=== PATIENT | female | born 1985 | race American Indian/Alaskan Native ===

== ENCOUNTER 2020-08-10 13:29 | Emergency (ER) | payer MEDICAID ==
[2020-08-10 15:31] LABS: Basophils % (Auto) 0.5 % (0.0-1.8); Eosinophils # (Auto) 0.1 K/mm3 (0.0-0.4); Eosinophils % (Auto) 1.3 % (0.0-4.3); Hematocrit 41.5 % (30.3-42.9); Hemoglobin 13.8 gm/dl (10.1-14.3); Lymphocytes # (Auto) 1.4 K/mm3 (1.2-5.4); Lymphocytes % (Auto) 25.2 % (13.4-35.0); Mean Corpuscular HGB Conc 33 % (30-34); Mean Corpuscular Volume 89 fl (79-97); Monocytes # (Auto) 0.6 K/mm3 (0.0-0.8); Monocytes % (Auto) 11.1 % (0.0-7.3); Platelet Count 301 K/mm3 (140-440); Red Blood Count 4.65 M/mm3 (3.65-5.03)
[2020-08-10 16:29] LABS: Alanine Aminotransferase 9 units/L (7-56); Albumin 4.5 g/dL (3.9-5); Blood Urea Nitrogen 13 mg/dL (7-17); Calcium 9.2 mg/dL (8.4-10.2); Hemolysis Index 5
[2020-08-10 16:30] LABS: BUN/Creatinine Ratio 19
[2020-08-10 19:11] VITALS: BP 116/82
[2020-08-10] MEDS ORDERED: KETOROLAC 30 MG/1 ML INJ IV ONE (19:29)
[2020-08-10] MEDS ORDERED: dexAMETHasone 20 MG/5 ML VIAL IV ONE (19:29)
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
--- NOTE | 2020-08-10 20:14 | XRay Report ---
CHEST 2 VIEWS INDICATION / CLINICAL INFORMATION: chest wall pain. COMPARISON: None available. FINDINGS: SUPPORT DEVICES: None. HEART / MEDIASTINUM: No significant abnormality. LUNGS / PLEURA: No significant pulmonary or pleural abnormality. No pneumothorax. ADDITIONAL FINDINGS: No significant additional findings. IMPRESSION: 1. No acute findings. Signer Name: Bruce Velez MD Signed: 08/10/2020 8:10 PM Workstation Name: [id number]
--- NOTE | 2020-08-10 20:15 | XRay Report ---
XR spine cervical 2-3V INDICATION / CLINICAL INFORMATION: neck pain. COMPARISON: None available. FINDINGS: BONES/JOINT(S): No acute fracture or subluxation. No significant degenerative changes. SOFT TISSUES: No significant abnormality. ADDITIONAL FINDINGS: None. Signer Name: Bruce Velez MD Signed: 08/10/2020 8:10 PM Workstation Name: [id number]
== END 2020-08-10 21:15 | disposition home or self-care (01) ==
LOC: ED 13:29
DX: S16.1XXA Strain of muscle, fascia and tendon at neck level, initial encounter (principal); Z90.49 Acquired absence of other specified parts of digestive tract; Z98.890 Other specified postprocedural states; Z79.899 Other long term (current) drug therapy; Z88.2 Allergy status to sulfonamides; X58.XXXA Exposure to other specified factors, initial encounter; Y93.89 Activity, other specified; Y92.89 Other specified places as the place of occurrence of the external cause; Y99.8 Other external cause status
CPT/HCPCS: 36415; 71046; 72040; 80053; 85025; 96374; 96375; 99284; J1100; J1885

== ENCOUNTER 2021-03-19 23:27 | Emergency (ER) | payer MEDICAID ==
[2021-03-20] MEDS ORDERED: diazePAM 10 MG/2 ML SYRINGE IV ONE (02:22)
[2021-03-20] MEDS ORDERED: SODIUM CHLORIDE 0.9% 1000 ML 1,000 ML IV ONE (02:22)
[2021-03-20] MEDS ORDERED: KETOROLAC 30 MG/1 ML INJ IV ONE (02:22)
[2021-03-20] MEDS ORDERED: ONDANSETRON 4 MG/2 ML INJ IV ONE (02:22)
[2021-03-20 02:59] LABS: Basophils % (Auto) 0.9 % (0.0-1.8); Eosinophils % (Auto) 0.9 % (0.0-4.3); Hematocrit 40.6 % (30.3-42.9); Hemoglobin 12.8 gm/dl (10.1-14.3); Lymphocytes # (Auto) 1.4 K/mm3 (1.2-5.4); Lymphocytes % (Auto) 39.6 % (13.4-35.0); Mean Corpuscular HGB Conc 32 % (30-34); Mean Corpuscular Volume 88 fl (79-97); Monocytes # (Auto) 0.5 K/mm3 (0.0-0.8); Monocytes % (Auto) 13.3 % (0.0-7.3); Platelet Count 183 K/mm3 (140-440); Red Blood Count 4.59 M/mm3 (3.65-5.03)
[2021-03-20 03:23] LABS: Alanine Aminotransferase 10 units/L (7-56); Albumin 3.8 g/dL (3.9-5); Blood Urea Nitrogen 10 mg/dL (7-17); Calcium 8.9 mg/dL (8.4-10.2); Hemolysis Index 2
[2021-03-20 03:26] LABS: BUN/Creatinine Ratio 14
--- NOTE | 2021-03-20 03:54 | XRay Report ---
CHEST 1 VIEW 03/20/2021 3:35 AM INDICATION / CLINICAL INFORMATION: COUGH, BODY ACHES. COMPARISON: 08/10/2020 FINDINGS: SUPPORT DEVICES: None. HEART / MEDIASTINUM: No significant abnormality. LUNGS / PLEURA: No significant pulmonary or pleural abnormality. No pneumothorax. ADDITIONAL FINDINGS: No significant additional findings. IMPRESSION: 1. No acute findings. Signer Name: Drew Turner DO Signed: 03/20/2021 3:49 AM Workstation Name: [id number]
[2021-03-20 04:41] LABS: Bacteria,Urine 1+ /HPF (Negative); Bilirubin,Urine NEG (Negative); Blood,Urine NEG (Negative); Color,Urine Yellow (Yellow); Mucus,Urine FEW /HPF; Protein,Urine <15 mg/dL mg/dL (Negative); Urobilinogen,Urine < 2.0 mg/dL (<2.0)
--- NOTE | 2021-03-20 05:31 | Emergency Department Report ---
- General Chief Complaint: Sore Throat Stated Complaint: COLD SX Source: patient Mode of arrival: Ambulatory Limitations: No Limitations - History of Present Illness Initial Comments: Patient is a 35-year-old -Malagasy female with a history of sickle cell anemia who presented to the ED with complaint of acute onset persistent nasal and sinus congestion, persistent dry cough, generalized weakness and fatigue, severe diffuse body aches and pains, nausea, subjective fever for the last 4 days. Patient states that she has been taking her medications at home as well as [id number] medications with no relief. Patient states that no one else at home is had similar symptoms. Patient denies dysuria, urinary frequency and urgency, abdominal pain, vomiting, diarrhea, dizziness, syncope, chest pain, shortness of breath, change in vision, vaginal bleeding or palpitations. MD Complaint: fever, cough, sore throat, rhinorrhea, nasal congestion, sinus pain, other (Diffuse body aches and pains) -: Sudden, days(s) (5) Severity: severe Severity scale (0 -10): 10 Quality: sharp, aching Consistency: constant Improves With: nothing Associated Symptoms: fever, chills, myalgias, headache, rhinorrhea, nasal congestion, cough, nausea. denies: sore throat, stiff neck, chest pain, shortness of breath, abdominal pain, vomiting, diarrhea, dysuria, rash, right sweats, weight loss, hoarseness, ear pain Treatments Prior to Arrival: "cold medicine" - Related Data Previous Rx's Medication Instructions Recorded Last Taken Type Cyclobenzaprine [Flexeril] 10 mg PO BID PRN #12 tablet 08/10/20 Unknown Rx Menthol/Camphor [[place] 1 applicatio TP Q6H PRN #1 tube 08/10/20 Unknown Rx Ointment] Naproxen 500 mg PO BID PRN #30 tablet 08/10/20 Unknown Rx predniSONE [Deltasone] 40 mg PO QDAY #10 tab 08/10/20 Unknown Rx Azithromycin [Zithromax Z-DERIC] 250 mg PO DAILY #6 tablet 03/20/21 Unknown Rx Baclofen 20 mg PO Q12H PRN #30 tablet 03/20/21 Unknown Rx Benzonatate [Tessalon Perles] 100 mg PO Q8HR #30 capsule 03/20/21 Unknown Rx Cetirizine HCl [Zyrtec 10mg tab] 10 mg PO DAILY #30 tablet 03/20/21 Unknown Rx Ibuprofen [Motrin] 800 mg PO Q8HR PRN #30 tablet 03/20/21 Unknown Rx Ondansetron [Zofran Odt] 4 mg PO Q6HR PRN #15 tab.rapdis 03/20/21 Unknown Rx Allergies Allergy/AdvReac Type Severity Reaction Status Date / Time Sulfa (Sulfonamide Allergy Vomiting Verified 08/10/20 14:47 Antibiotics) ED Review of Systems ROS: Stated complaint: COLD SX Other details as noted in HPI Constitutional: chills, fever, malaise, weakness Eyes: denies: eye pain, eye discharge, vision change ENT: congestion. denies: ear pain, throat pain Respiratory: cough. denies: shortness of breath, wheezing Cardiovascular: denies: chest pain, palpitations Endocrine: no symptoms reported Gastrointestinal: nausea. denies: abdominal pain, diarrhea Genitourinary: denies: urgency, dysuria, discharge Musculoskeletal: back pain, arthralgia, myalgia. denies: joint swelling Skin: denies: rash, lesions Neurological: headache. denies: weakness, paresthesias Psychiatric: denies: anxiety, depression Hematological/Lymphatic: denies: easy bleeding, easy bruising ED Past Medical Hx - Past Medical History Previous Medical History?: No Hx Sickle Cell Disease: Yes - Surgical History Past Surgical History?: Yes Hx Appendectomy: Yes Additional Surgical History: ectopic PG, tonsilectomy - Medications Home Medications: Home Medications Medication Instructions Recorded Confirmed Last Taken Type Cyclobenzaprine [Flexeril] 10 mg PO BID PRN #12 tablet 08/10/20 Unknown Rx Menthol/Camphor [[place] 1 applicatio TP Q6H PRN #1 tube 08/10/20 Unknown Rx Ointment] Naproxen 500 mg PO BID PRN #30 tablet 08/10/20 Unknown Rx predniSONE [Deltasone] 40 mg PO QDAY #10 tab 08/10/20 Unknown Rx Azithromycin [Zithromax Z-DERIC] 250 mg PO DAILY #6 tablet 03/20/21 Unknown Rx Baclofen 20 mg PO Q12H PRN #30 tablet 03/20/21 Unknown Rx Benzonatate [Tessalon Perles] 100 mg PO Q8HR #30 capsule 03/20/21 Unknown Rx Cetirizine HCl [Zyrtec 10mg tab] 10 mg PO DAILY #30 tablet 03/20/21 Unknown Rx Ibuprofen [Motrin] 800 mg PO Q8HR PRN #30 tablet 03/20/21 Unknown Rx Ondansetron [Zofran Odt] 4 mg PO Q6HR PRN #15 tab.rapdis 03/20/21 Unknown Rx ED Physical Exam - General Limitations: No Limitations General appearance: alert, in no apparent distress - Head Head exam: Present: atraumatic, normocephalic, normal inspection - Eye Eye exam: Present: normal appearance, PERRL, EOMI Pupils: Present: normal accommodation - ENT ENT exam: Present: normal orophraynx, mucous membranes moist, TM's normal bilaterally, normal external ear exam, other (Grossly congested nasal passages; palpable frontal sinus tenderness) - Neck Neck exam: Present: normal inspection, full ROM. Absent: meningismus - Respiratory Respiratory exam: Present: normal lung sounds bilaterally. Absent: respiratory distress, wheezes, rhonchi, stridor, chest wall tenderness, decreased breath sounds, prolonged expiratory - Cardiovascular Cardiovascular Exam: Present: normal rhythm, bradycardia, normal heart sounds. Absent: systolic murmur, diastolic murmur, rubs, gallop - GI/Abdominal GI/Abdominal exam: Present: soft, normal bowel sounds. Absent: distended, tenderness, rebound, hyperactive bowel sounds, hypoactive bowel sounds, organomegaly - Extremities Exam Extremities exam: Present: normal inspection, full ROM, normal capillary refill - Back Exam Back exam: Present: normal inspection, full ROM. Absent: tenderness, CVA tenderness (R), CVA tenderness (L), muscle spasm, paraspinal tenderness - Neurological Exam Neurological exam: Present: alert, oriented X3, CN II-XII intact, normal gait, reflexes normal - Psychiatric Psychiatric exam: Present: normal affect, normal mood, anxious - Skin Skin exam: Present: warm, dry, intact, normal color. Absent: rash ED Course Vital Signs 03/19/21 23:31 Temperature 98.6 F Pulse Rate 59 L Respiratory 16 Rate Blood Pressure 126/66 O2 Sat by Pulse 96 Oximetry ED Medical Decision Making - Lab Data Result diagrams: 03/20/21 02:45 03/20/21 02:45 - Radiology Data Radiology results: report reviewed, image reviewed [facility] [address] [place] [address] XRay Report Signed Patient: ADAN PATEL MR#: [id number] [birth year] : 1985 Acct:[id number] Age/Sex: 35 / F ADM Date: 03/19/21 Loc: ED Attending Dr: Ordering Physician: SCOTT TOWNSEND Date of Service: 03/20/21 Procedure(s): XR chest 1V ap Accession Number(s): [id number] cc: SCOTT TOWNSEND Fluoro Time In Minutes: CHEST 1 VIEW 03/20/2021 3:35 AM INDICATION / CLINICAL INFORMATION: COUGH, BODY ACHES. COMPARISON: 08/10/2020 FINDINGS: SUPPORT DEVICES: None. HEART / MEDIASTINUM: No significant abnormality. LUNGS / PLEURA: No significant pulmonary or pleural abnormality. No pneumothorax. ADDITIONAL FINDINGS: No significant additional findings. IMPRESSION: 1. No acute findings. Signer Name: Drew Turner DO Signed: 03/20/2021 3:49 AM Workstation Name: [id number] Transcribed By: GINGER Dictated By: DREW TURNER DO Electronically Authenticated By: DREW TURNER DO Signed Date/Time: 03/20/21348 DD/ 8 TD/TT: Print Cancel - Medical Decision Making This is a 35-year-old -Malagasy female with a history of sickle cell anemia who presented to the ED with complaint of acute onset persistent nasal and sinus congestion, persistent dry cough, generalized weakness and fatigue, severe diffuse body aches and pains, nausea, subjective fever for the last 4 days. Patient states that she has been taking her medications at home as well as tlyd-mjw-guwkhay medications with no relief. Patient states that no one else at home is had similar symptoms. In the ED, patient is alert and oriented x3 and is not in distress. Patient was treated in the ED for pain and also given normal saline 1 L IV bolus x1. Chest x-ray showed no acute cardiopulmonary abnormalities or pneumonitis. Lab test results were reviewed and are all nonactionable including rapid influenza test results. On reevaluation, patient's pain is well controlled medication. Patient will discharge home on medications and advised to follow-up with her primary care physician in 3 to 5 days for reevaluation, also advised to continue taking her regular medications at home. Patient was advised return to the ED immediately if symptoms get worse. - Differential Diagnosis URI; sinusitis; pneumonia; bronchitis; influenza; COVID-19 Critical care attestation.: If time is entered above; I have spent that time in minutes in the direct care of this critically ill patient, excluding procedure time. ED Disposition Clinical Impression: Acute upper respiratory infection, Sickle cell pain crisis Acute frontal sinusitis Qualifiers: Recurrence: non-recurrent Qualified Code(s): J01.10 - Acute frontal sinusitis, unspecified Acute bronchitis Qualifiers: Bronchitis organism: unspecified organism Qualified Code(s): J20.9 - Acute bronchitis, unspecified Disposition: 01 HOME / SELF CARE / HOMELESS Is pt being admited?: No Does the pt Need Aspirin: No Condition: Stable Instructions: Acute Bronchitis (ED), Sinusitis, Adult, [id number], Upper Respiratory Infection, Adult, Oiwl-nb-Ensi, Cough, Adult, Bipc-do-Juvp, Acute Bronchitis, Adult, Ozrf-bw-Datp Additional Instructions: All lab test results were reviewed and are all nonactionable. Chest x-ray s howed no acute cardiopulmonary abnormalities or pneumonitis. Therefore take medications with food, including your regular pain medication at home and follow-up with your primary care physician in 5 to 7 days for reevaluation. Return to the ED immediately if symptoms get worse. Prescriptions: Baclofen 20 mg PO Q12H PRN #30 tablet PRN Reason: Muscle Spasm Ibuprofen [Motrin] 800 mg PO Q8HR PRN #30 tablet PRN Reason: pain or fever Benzonatate [Tessalon Perles] 100 mg PO Q8HR #30 capsule Azithromycin [Zithromax Z-DERIC] 250 mg PO DAILY #6 tablet Ondansetron [Zofran Odt] 4 mg PO Q6HR PRN #15 tab.rapdis PRN Reason: Nausea Cetirizine HCl [Zyrtec 10mg tab] 10 mg PO DAILY #30 tablet Referrals: [facility] [Provider Group] - 3-5 Days Time of Disposition: 05:33 Print Language: SETSWANA
[2021-03-20 06:17] VITALS: BP 117/60
== END 2021-03-20 06:16 | disposition home or self-care (01) ==
LOC: ED 23:27
DX: J06.9 Acute upper respiratory infection, unspecified (principal); J01.10 Acute frontal sinusitis, unspecified; J02.8 Acute pharyngitis due to other specified organisms; D57.00 Hb-SS disease with crisis, unspecified; Z90.49 Acquired absence of other specified parts of digestive tract; Z90.89 Acquired absence of other organs; Z88.2 Allergy status to sulfonamides; Z79.899 Other long term (current) drug therapy
CPT/HCPCS: 36415; 71045; 80053; 81001; 84703; 85025; 85045; 87400; 96361; 96374; 96375; 99284; J1885; J2405; J3360; J7030; Q0162

== ENCOUNTER 2021-09-27 13:28 | Emergency (ER) | payer MEDICAID ==
[2021-09-27] MEDS ORDERED: TETANUS,DIPH,PERTUSS(ACELL) VACCINE 0.5 ML SYRINGE IM ONE (14:53)
[2021-09-27 14:55] VITALS: BP 118/79
[2021-09-27] MEDS ORDERED: oxyCODONE /ACETAMINOPHEN 5-325MG TAB PO ONE (14:55)
[2021-09-27] MEDS ORDERED: AMOXICILLIN/K CLAV 875/125MG TAB PO ONE (14:55)
--- NOTE | 2021-09-27 15:39 | XRay Report ---
RIGHT LOWER LEG 2 VIEWS INDICATION / CLINICAL INFORMATION: Dog bite with right lower leg pain COMPARISON: None available. FINDINGS: BONES / JOINT(S): No acute fracture or subluxation. No significant arthritis. SOFT TISSUES: There are a couple of small adjacent ovoid calcific densities anterior to the midshaft of the tibia, likely dystrophic. No soft tissue swelling or soft tissue gas. ADDITIONAL FINDINGS: None. IMPRESSION: No acute findings. RIGHT ANKLE 3 VIEWS INDICATION / CLINICAL INFORMATION: Dog bite with right ankle pain COMPARISON: None available. FINDINGS: BONES / JOINT(S): No acute fracture or subluxation. No significant arthritis. SOFT TISSUES: No significant abnormality. ADDITIONAL FINDINGS: None. IMPRESSION: No acute findings. Signer Name: Brady Bateman MD Signed: 09/27/2021 3:34 PM Workstation Name: [id number]
== END 2021-09-28 01:05 | disposition left against medical advice (07) ==
LOC: ED 13:28
DX: T14.8XXA Other injury of unspecified body region, initial encounter (principal); Z53.21 Procedure and treatment not carried out due to patient leaving prior to being seen by health care provider; W54.0XXA Bitten by dog, initial encounter; Y93.89 Activity, other specified; Y92.89 Other specified places as the place of occurrence of the external cause; Y99.8 Other external cause status